=== PATIENT | female | born 1945 | race African-American/Black ===

== ENCOUNTER 2022-03-23 16:44 | Inpatient (IN) | payer MEDICARE ==
[~2022-03-23] VITALS: Ht 162.6 cm; Wt 72.6 kg
[2022-03-23 18:35] LABS: BASOPHILS % 0.6 % (0.0-1.0); EOSINOPHILS # (AUTO) 0.3 (0.0-0.4); EOSINOPHILS % 8.4 % (0.0-6.0); HEMATOCRIT 38.5 % (34.2-44.1); HEMOGLOBIN 12.8 g/dL (12.0-16.0); LYMPHOCYTES # (AUTO) 1.5 (1.0-3.2); LYMPHOCYTES % 46.6 % (18.0-39.1); MEAN CORPUSCULAR HGB CONC 33.2 g/dL (31-35); MEAN CORPUSCULAR VOLUME 99.2 fL (81-99); MONOCYTES # (AUTO) 0.4 (0.2-0.8); MONOCYTES % 12.1 % (4.4-11.3); PLATELET COUNT 158 x10e3/uL (140-360); RED BLOOD COUNT 3.88 x10e6/uL (3.6-5.1); RED CELL DISTRIBUTION WIDTH 13.3 % (11.7-14.4)
[2022-03-23 18:47] LABS: ALBUMIN 3.2 g/dL (3.5-5.0); ALBUMIN/GLOBULIN RATIO 0.8 (0.8-2.0); ANION GAP 11.7 mmol/L (8-16); CALCIUM 8.6 mg/dL (8.4-10.2); CREATININE, SERUM 0.69 mg/dL (0.57-1.11); POTASSIUM 3.7 mmol/L (3.5-5.1)
[2022-03-23] MEDS ORDERED: ONDANSETRON HCL INJ 2MG/ML 2ML 2 MG/ML VIAL IV PRN (19:30)
[2022-03-23] MEDS ORDERED: DEXTROSE 50% SYRINGE 50 ML IV PRN (19:30)
[2022-03-23] MEDS ORDERED: SODIUM CHLORIDE FLUSH 10 ML SYR INJ PRN (19:30)
[2022-03-23] MEDS: ACETAMINOPHEN 325 MG TAB PO PRN (19:51)
[2022-03-23] MEDS ORDERED: ACETAMINOPHEN 325 MG TAB ONE (19:57)
[2022-03-23] MEDS: Vancomycin IV 1 GM in SODIUM CHLORIDE 0.9% 250ML 250 ML IV SCH (20:24)
[2022-03-23] MEDS: INSULIN REGULAR, HUMAN 100 UNIT/1 ML SQ SCH (20:24)
[2022-03-23 20:54] LABS: EOSINOPHILS % (MANUAL) 9 % (0-7); LYMPHOCYTES % (MANUAL) 37 % (19-48); MONOCYTES % (MANUAL) 12 % (3.4-9.0); NEUTROPHILS % (MANUAL) 42 % (40-74)
[2022-03-23 20:55] LABS: PLATELET ESTIMATE ADEQUATE; PLATELET MORPHOLOGY COMMENT NORMAL; RBC MORPHOLOGY COMMENT NORMAL
[2022-03-23] MEDS ORDERED: IOPAMIDOL 370 MG/ML 100 ML INFUS..BTL INJ ONE (23:38)
[2022-03-24] VITALS (9 sets, daily range): BP systolic 110–141; BP diastolic 60–83
[2022-03-24] MEDS ORDERED: BISACODYL5 MG PO (03:54)
[2022-03-24] MEDS ORDERED: CHOLECALCIFEROL1 GM (03:54)
[2022-03-24] MEDS ORDERED: ATIVAN0.5 MG PO (03:54)
[2022-03-24] MEDS ORDERED: ASCORBIC ACID500 M2 PO (03:54)
[2022-03-24] MEDS ORDERED: TYLENOL325 MG PO (03:54)
[2022-03-24] MEDS ORDERED: DOCUSATE SODIU100 MG PO (04:08)
[2022-03-24] MEDS ORDERED: KEPPRA500 MG PO (04:08)
[2022-03-24] MEDS ORDERED: MULTI-VITAMIN1 EACH PO (04:08)
[2022-03-24] MEDS ORDERED: FOLIC ACID0.4 MG PO (04:08)
[2022-03-24] MEDS ORDERED: ACIDOPHILUS1 EAC1 PO (04:08)
[2022-03-24] MEDS ORDERED: REMERON15 MG PO (04:08)
[2022-03-24] MEDS ORDERED: SENNA-S 8.6-501 EACH (04:08)
[2022-03-24] MEDS ORDERED: ONDANSETRON ODT4 MG PO (04:42)
[2022-03-24] MEDS ORDERED: ULTRAM 50MG50 MG PO (04:42)
[2022-03-24] MEDS ORDERED: TRAZODONE HCL50 MG PO (04:42)
[2022-03-24] MEDS ORDERED: THIAMINE H100 MG/1 M PO (04:42)
[2022-03-24] MEDS ORDERED: SEROQUEL50 MG PO (04:42)
[2022-03-24 05:00] LABS: BASOPHILS % 0.7 % (0.0-1.0); EOSINOPHILS # (AUTO) 0.2 (0.0-0.4); EOSINOPHILS % 8.9 % (0.0-6.0); HEMATOCRIT 37.9 % (34.2-44.1); HEMOGLOBIN 12.3 g/dL (12.0-16.0); LYMPHOCYTES # (AUTO) 0.9 (1.0-3.2); LYMPHOCYTES % 32.8 % (18.0-39.1); MEAN CORPUSCULAR HEMOGLOBIN 32.5 pg (28-32); MEAN CORPUSCULAR HGB CONC 32.5 g/dL (31-35); MONOCYTES # (AUTO) 0.5 (0.2-0.8); MONOCYTES % 16.6 % (4.4-11.3); NEUTROPHILS # (AUTO) 1.1 (2.1-6.9); NEUTROPHILS % 40.6 % (38.7-80.0); PLATELET COUNT 144 x10e3/uL (140-360); RED BLOOD COUNT 3.79 x10e6/uL (3.6-5.1); RED CELL DISTRIBUTION WIDTH 13.3 % (11.7-14.4)
[2022-03-24 05:26] LABS: ANION GAP 10.7 mmol/L (8-16); CALCIUM 8.2 mg/dL (8.4-10.2); CREATININE, SERUM 0.75 mg/dL (0.57-1.11); POTASSIUM 3.7 mmol/L (3.5-5.1)
[2022-03-24] MEDS: INSULIN REGULAR, HUMAN 100 UNIT/1 ML SQ SCH ×4 (07:30→20:48)
[2022-03-24] MEDS: Vancomycin IV 1 GM in SODIUM CHLORIDE 0.9% 250ML 250 ML IV SCH ×2 (08:03→18:57)
[2022-03-24] MEDS ORDERED: SODIUM CHLORIDE 0.9% 250ML 250 ML ONE (08:06)
[2022-03-24] MEDS: Morphine 2mg Syringe 2 MG/ML SYR IV PRN ×3 (09:15→18:57)
[2022-03-24 09:32] LABS: EOSINOPHILS % (MANUAL) 9 % (0-7); LYMPHOCYTES % (MANUAL) 39 % (19-48); MONOCYTES % (MANUAL) 13 % (3.4-9.0); NEUTROPHILS % (MANUAL) 37 % (40-74); PLATELET ESTIMATE SLIGHTLY DECREASED; PLATELET MORPHOLOGY COMMENT NORMAL; RBC MORPHOLOGY COMMENT NORMAL
[2022-03-24] MEDS: FOLIC ACID 1 MG TAB PO SCH (13:43)
[2022-03-24] MEDS: ASCORBIC ACID 500 MG TAB PO SCH (13:43)
[2022-03-24] MEDS: MULTIVITAMINS/MINERALS TAB PO SCH (13:43)
[2022-03-24] MEDS: SENNA-S TABLET PO SCH (13:43)
[2022-03-24] MEDS: DOCUSATE SODIUM 100 MG CAP PO SCH (13:43)
[2022-03-24] MEDS: LEVETIRACETAM 500 MG TAB PO SCH ×2 (16:50→21:01)
[2022-03-24] MEDS: ENOXAPARIN SOD INJ 40 MG/0.4 ML SYR SC SCH (16:50)
[2022-03-24] MEDS: QUETIAPINE FUMARATE 25 MG TAB PO SCH (16:50)
[2022-03-24] MEDS: LACTOBACILLUS ACIDOPHILUS CAPSULE PO SCH (16:50)
[2022-03-24] MEDS: MIRTAZAPINE 15 MG TAB PO SCH (21:01)
[2022-03-24] MEDS: TRAZODONE HCL 50 MG TAB PO SCH (21:01)
[2022-03-25] VITALS (7 sets, daily range): BP systolic 118–133; BP diastolic 61–78
[2022-03-25] MEDS: Morphine 2mg Syringe 2 MG/ML SYR IV PRN ×2 (04:30→11:10)
[2022-03-25] MEDS: Vancomycin IV 1 GM in SODIUM CHLORIDE 0.9% 250ML 250 ML IV SCH ×2 (07:30→19:30)
[2022-03-25] MEDS: INSULIN REGULAR, HUMAN 100 UNIT/1 ML SQ SCH ×4 (07:30→20:50)
[2022-03-25] MEDS: LACTOBACILLUS ACIDOPHILUS CAPSULE PO SCH ×2 (08:59→17:00)
[2022-03-25] MEDS: DOCUSATE SODIUM 100 MG CAP PO SCH (08:59)
[2022-03-25] MEDS: SENNA-S TABLET PO SCH (08:59)
[2022-03-25] MEDS: ASCORBIC ACID 500 MG TAB PO SCH (08:59)
[2022-03-25] MEDS: LEVETIRACETAM 500 MG TAB PO SCH ×3 (08:59→21:39)
[2022-03-25] MEDS: QUETIAPINE FUMARATE 25 MG TAB PO SCH ×2 (08:59→17:00)
[2022-03-25] MEDS: FOLIC ACID 1 MG TAB PO SCH (08:59)
[2022-03-25] MEDS: MULTIVITAMINS/MINERALS TAB PO SCH (08:59)
[2022-03-25] MEDS ORDERED: LORAZEPAM 0.5 MG TAB PO PRN (11:45)
[2022-03-25] MEDS: TRAMADOL HCL 50 MG TAB PO PRN (15:40)
[2022-03-25] MEDS: ENOXAPARIN SOD INJ 40 MG/0.4 ML SYR SC SCH (17:00)
[2022-03-25 19:57] LABS: CHOL/HDL RATIO 4.4 (3.0-3.6)
[2022-03-25] MEDS: MIRTAZAPINE 15 MG TAB PO SCH (21:39)
[2022-03-25] MEDS: TRAZODONE HCL 50 MG TAB PO SCH (21:39)
[2022-03-25] MEDS: ACETAMINOPHEN 325 MG TAB PO PRN (21:44)
[2022-03-26] VITALS (7 sets, daily range): BP systolic 106–136; BP diastolic 56–82
[2022-03-26] MEDS: INSULIN REGULAR, HUMAN 100 UNIT/1 ML SQ SCH ×4 (07:30→20:07)
[2022-03-26] MEDS: Vancomycin IV 1 GM in SODIUM CHLORIDE 0.9% 250ML 250 ML IV SCH (07:30)
[2022-03-26 08:33] LABS: BASOPHILS % 0.6 % (0.0-1.0); EOSINOPHILS # (AUTO) 0.3 (0.0-0.4); EOSINOPHILS % 7.8 % (0.0-6.0); HEMATOCRIT 37.9 % (34.2-44.1); HEMOGLOBIN 12.4 g/dL (12.0-16.0); LYMPHOCYTES # (AUTO) 1.2 (1.0-3.2); LYMPHOCYTES % 33.7 % (18.0-39.1); MEAN CORPUSCULAR HEMOGLOBIN 32.5 pg (28-32); MEAN CORPUSCULAR HGB CONC 32.7 g/dL (31-35); MEAN CORPUSCULAR VOLUME 99.5 fL (81-99); MONOCYTES # (AUTO) 0.5 (0.2-0.8); MONOCYTES % 13.4 % (4.4-11.3); NEUTROPHILS # (AUTO) 1.5 (2.1-6.9); NEUTROPHILS % 43.9 % (38.7-80.0); PLATELET COUNT 162 x10e3/uL (140-360); RED BLOOD COUNT 3.81 x10e6/uL (3.6-5.1); RED CELL DISTRIBUTION WIDTH 13.3 % (11.7-14.4)
[2022-03-26 08:53] LABS: ANION GAP 10.5 mmol/L (8-16); CALCIUM 9.2 mg/dL (8.4-10.2); CREATININE, SERUM 0.64 mg/dL (0.57-1.11); POTASSIUM 3.5 mmol/L (3.5-5.1)
[2022-03-26] MEDS: FOLIC ACID 1 MG TAB PO SCH (09:25)
[2022-03-26] MEDS: LEVETIRACETAM 500 MG TAB PO SCH ×3 (09:25→20:06)
[2022-03-26] MEDS: QUETIAPINE FUMARATE 25 MG TAB PO SCH ×2 (09:25→17:28)
[2022-03-26] MEDS: SENNA-S TABLET PO SCH (09:25)
[2022-03-26] MEDS: DOCUSATE SODIUM 100 MG CAP PO SCH (09:25)
[2022-03-26] MEDS: LACTOBACILLUS ACIDOPHILUS CAPSULE PO SCH ×2 (09:25→17:28)
[2022-03-26] MEDS: ASCORBIC ACID 500 MG TAB PO SCH (09:25)
[2022-03-26] MEDS: MULTIVITAMINS/MINERALS TAB PO SCH (09:25)
[2022-03-26] MEDS: TRAMADOL HCL 50 MG TAB PO PRN ×2 (12:32→17:15)
[2022-03-26] MEDS: ENOXAPARIN SOD INJ 40 MG/0.4 ML SYR SC SCH (16:07)
[2022-03-26] MEDS: AMOXICILLIN/CLAVULANATE K 500 MG TAB PO SCH (20:06)
[2022-03-26] MEDS: TRAZODONE HCL 50 MG TAB PO SCH (20:06)
[2022-03-26] MEDS: MIRTAZAPINE 15 MG TAB PO SCH (20:06)
[2022-03-26] MEDS: ACETAMINOPHEN 325 MG TAB PO PRN (20:07)
[2022-03-27] VITALS: BP 107/56
[2022-03-27 04:00] VITALS: BP 124/58
[2022-03-27] MEDS: INSULIN REGULAR, HUMAN 100 UNIT/1 ML SQ SCH ×2 (07:30→11:30)
[2022-03-27 07:50] VITALS: BP 133/59
[2022-03-27 07:55] VITALS: BP 133/59
[2022-03-27] MEDS: LEVETIRACETAM 500 MG TAB PO SCH (09:35)
[2022-03-27] MEDS: ASCORBIC ACID 500 MG TAB PO SCH (09:35)
[2022-03-27] MEDS: SENNA-S TABLET PO SCH (09:35)
[2022-03-27] MEDS: QUETIAPINE FUMARATE 25 MG TAB PO SCH (09:35)
[2022-03-27] MEDS: FOLIC ACID 1 MG TAB PO SCH (09:35)
[2022-03-27] MEDS: AMOXICILLIN/CLAVULANATE K 500 MG TAB PO SCH (09:35)
[2022-03-27] MEDS: MULTIVITAMINS/MINERALS TAB PO SCH (09:35)
[2022-03-27] MEDS: LACTOBACILLUS ACIDOPHILUS CAPSULE PO SCH (09:35)
[2022-03-27] MEDS: DOCUSATE SODIUM 100 MG CAP PO SCH (09:35)
[2022-03-27] MEDS: TRAMADOL HCL 50 MG TAB PO PRN (09:39)
[2022-03-27 12:07] VITALS: BP 149/87
[2022-03-27] MEDS ORDERED: AUGMENTIN 500-1 EACH PO (12:18)
[2022-03-27] MEDS ORDERED: KEPPRA500 MG PO (12:18)
[2022-03-27] MEDS ORDERED: ONDANSETRON HCL 4 MG ORAL DISINTEGRATING TAB PO PRN (14:30)
[2022-03-27] MEDS ORDERED: LEVETIRACETAM 500 MG TAB PO SCH (15:00)
== END 2022-03-27 15:45 | DRG 394 ==
LOC: ER 16:58 → ERHOLD 19:43 → MED/SURG3 22:03 → OBSVTOIN 03-24 10:30
PROVIDERS: ADMIT Internal Medicine; ATTEND Internal Medicine
DX: K94.22 Gastrostomy infection (principal); L03.311 Cellulitis of abdominal wall; E11.9 Type 2 diabetes mellitus without complications; Z90.49 Acquired absence of other specified parts of digestive tract; Z88.5 Allergy status to narcotic agent; G40.909 Epilepsy, unspecified, not intractable, without status epilepticus; I69.369 Other paralytic syndrome following cerebral infarction affecting unspecified side; F39 Unspecified mood [affective] disorder; R45.1 Restlessness and agitation; Z74.01 Bed confinement status; Z83.3 Family history of diabetes mellitus; Z82.3 Family history of stroke; Z82.49 Family history of ischemic heart disease and other diseases of the circulatory system
CPT/HCPCS: 36415; 70450; 74177; 80048; 80053; 80061; 80202; 82948; 83036; 83605; 85025; 87040; 99251; 99284; G0378; J1650; J2270; J2405; J2543; J3370; J7050; Q9967; U0002